=== PATIENT | male | born 1960 | race Caucasian/White ===

== ENCOUNTER 2016-09-08 08:26 | Inpatient (IN) | payer MEDICARE, OTHER ==
[2016-09-04 20:44] LABS: HEMATOCRIT 42.7 % (40.0-51.0); HEMOGLOBIN 14.6 g/dL (13.6-17.8)
[2016-09-04 21:02] LABS: BUN (BLOOD UREA NITROGEN) 10 MG/DL (6-23); CHLORIDE, SERUM 110 MMOL/L (96-112); CREATININE 0.88 MG/DL (0.70-1.30); GFR AFRICAN AMERICAN 114 ML/MIN (>=60); GFR NON AFRICAN AMERICAN 98 ML/MIN (>=60); POTASSIUM, SERUM 4.1 MMOL/L (3.5-5.3); SODIUM, SERUM 142 MMOL/L (135-148)
[2016-09-04 21:03] LABS: CO2 (CARBON DIOXIDE) 19 MMOL/L (24-34); GLUCOSE, SERUM 109 MG/DL (60-99)
--- NOTE | ~2016-09-08 | OP ---
Record Of Operation [facility] [address] [place]. [address] NAME: PATRICIA SANDOVAL : 64 STATUS : ADM IN PAT#: [id number] AGE: 55 ADM/REG DATE : 09/08/16 MR#: [id number] REPORT SERV DATE: 09/09/16 DICTATED BY: MAREN LOERA II DATE: 09/09/16 REPORT STATUS : Draft TRANSCRIBED BY: MODL DATE: 09/09/16 DATE OF PROCEDURE: 09/08/2016 PREOPERATIVE DIAGNOSES: 1. Left upper extremity radiculopathy, recurrent. 2. Persistent stenosis, C5-6, C6-7. 3. Llab-bz-mmrnurkt adjacent segment degeneration, C7-T1. POSTOPERATIVE DIAGNOSES: 1. Left upper extremity radiculopathy, recurrent. 2. Persistent stenosis, C5-6, C6-7. 3. Mque-bn-opdlvdrx adjacent segment degeneration, C7-T1. 4. Nonunion C5-C6. PROCEDURES: 1. Posterior cervical laminectomy, C5-6, C6-7. 2. Posterolateral arthrodesis, C5-6, C7-T1. 3. Posterior segmental instrumentation, C5-6, C6-7, and C7-T1. 4. Use of local autograft, allograft substitute, and bone morphogenic protein. 5. Use of the microscope and stereotactic spinal imaging. SURGEON: Maren Loera M.D. FLUIDS REPLACED: 1 L lactated Ringer's. ESTIMATED BLOOD LOSS: 75 mL. DRAINS: One drain. COMPLICATIONS: None. ANTIBIOTIC: Preoperatively. PREOPERATIVE HISTORY: This is very friendly 55-year-old who has a complicated surgical past, but has done well with surgery. He reports a recurrent pain in the left upper extremity consistent with a C6 and possibly C7 radiculopathy. We discussed the pros and cons of continuing nonoperative care versus surgery. DESCRIPTION OF PROCEDURE: After informed consent was obtained, the patient was brought to the operating room at his request and general anesthesia achieved. He was placed in a prone position following application of the Delgado-Wells tongs. The posterior neck and upper thoracic region were prepped and draped in a sterile fashion. The incision was made in the midline and subperiosteal exposure was completed from C5-T1. The deep retractors were placed. Interestingly, we quickly noticed a very obvious macro motion at C5-6. He had a previous anterior surgery on different occasions, but ultimately spanning C3-C7. C7-T1 of course was mobile as it had not been previously operated on. C6-7 appeared well fused. Record Of Operation [facility] [place] [address] NAME: PATRICIA SANDOVAL : 64 STATUS : ADM IN PAT#: [id number] AGE: 55 ADM/REG DATE : 09/08/16 MR#: [id number] REPORT SERV DATE: 09/09/16 DICTATED BY: MAREN LOERA II DATE: 09/09/16 REPORT STATUS : Draft TRANSCRIBED BY: MODL DATE: 09/09/16 At this point, the lateral mass screws were placed in C5, C6, and C7 using stereotactic guidance. At this point, the intraoperative CT scan has been completed. Following the placement of the T1 pedicle screws we then performed the laminectomy at C5-6 and C6-7. The cord did have some mild stenosis upon it. The main stenosis was in the foramina especially at C5-6. This facet appeared to have continued to hypertrophy and was compressing the C6 nerve root. We also then performed a foraminotomy at C6-7. At this point, I was pleased with the decompression and laminectomy. Next, the rods were then well placed and final tightening performed. A repeat CT scan confirmed acceptable placement of the implants. At this point, the decortication was performed of the lateral masses and the facet joints at C5-6 and C7-T1. The transverse processes of T1 were also decorticated. Local autograft, allograft substitute, and bone morphogenic protein were then placed along the decorticated surfaces. The deep drain was placed, and standard closure performed, and the patient was then extubated and then transferred to PACU in stable condition. PHIL/ANTHONY Maren Loera II, M.D. / [id number] CC: Charly Monzon II, M.D.
--- NOTE | ~2016-09-08 | EEG ---
Electroencephalogram [facility] [address] [place]. [address] NAME: PATRICIA SANDOVAL : 64 STATUS : DIS IN PAT#: [id number] AGE: 55 ADM/REG DATE : 09/08/16 MR#: [id number] REPORT SERV DATE: 09/22/16 DICTATED BY: DATE: REPORT STATUS : Draft TRANSCRIBED BY: MODL DATE: 09/22/16 DATE OF EVALUATION: 09/14/2016 to 09/15/2016. CLINICAL INDICATION: Recurrent loss of consciousness episode. DISCUSSION: This EEG was performed using 10/20 electrode placement system. During the EEG study, symmetric background activity was noted with predominant occipital rhythm of roughly 8 hertz. The patient achieved drowsy, stage 1, 2, was well as 3 sleep with appropriate sleep spindles with K-complexes as well as slowing. During the EEG study, the patient demonstrated no seizure-like activity and no event was captured and no electrographic seizure or seizure discharge was otherwise seen during the EEG study. INTERPRETATION: This EEG study obtained during awake and drowsy as well as stage 1, 2, and 3 sleep, may be considered within normal limits. No focal abnormalities, seizure activity, or seizure discharge were otherwise noted, so the patient demonstrated no clinical seizure and no clinical unresponsive event was captured. [facility]/ANTHONY Juan Antonio Chang MD / [id number] CC: Charly Monzon II, M.D.
--- NOTE | ~2016-09-08 | DS ---
Discharge Summary [facility] [address] [place]. [address] NAME: PATRICIA SANDOVAL : 64 STATUS : DIS IN PAT#: [id number] AGE: 55 ADM/REG DATE : 09/08/16 MR#: [id number] REPORT SERV DATE: 09/29/16 DICTATED BY: MAREN LOERA II DATE: 09/28/16 REPORT STATUS : Draft TRANSCRIBED BY: ANTHONY DATE: 09/28/16 Data Collection from hospitalization DISCHARGE DIAGNOSES: 1. Left upper extremity radiculopathy-recurrent. 2. Persistent stenosis, C5-6, C6-7. 3. Mild to moderate adjacent segment degeneration, C7-T1. 4. Nonunion, C5-C6. 5. Hypertension. 6. History of transient ischemic attack. 7. Hyperlipidemia. 8. 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 9. Enlarged prostate. CONSULTATIONS: Dr. Juan Antonio Chang and Dr. Jordon Giles. PROCEDURES: 1. Posterior cervical laminectomy C5-6, C6-7. Posterolateral arthrodesis, C5-6, C7-T1. Posterior segmental instrumentation C5-6, C6-7 and C7-T1; use of local autograft, allograft substitute, and bone morphogenic protein; use of microscope and stereotactic spinal imaging, 09/08/2016. 2. Loop recorder implantation, 09/16/2016. 3. CTA of the neck/brain-stroke protocol, 09/10/2016. 4. MRI of the brain without contrast, 09/11/2016. 5. CT scan of the brain without contrast and CTA of the neck and brain-stroke protocol, 09/12/2016. 6. MRI of the brain without contrast, 09/13/2016. 7. Electroencephalogram, 09/11/2016. 8. Electroencephalogram, 09/14/2016-09/15/2016. PATHOLOGY: Vertebral bone and soft tissue, cervical spine-no specific microscopic abnormality. DISCHARGE MEDICATIONS: Aspirin 81 mg daily, Tenormin 25 mg daily, Lipitor 40 mg at bedtime, Plavix 75 mg every morning, Neurontin 400 mg three times a day, MS Contin 15 mg every 12 hours, Roxicodone 15 mg every four hours as needed, Zanaflex 4 mg three times a day as needed. CONDITION ON DISCHARGE: Stable. DISPOSITION: The patient was discharged home on a regular diet with activities as instructed. He would follow up with Dr. Jordon Giles 10/29/2016. He would call my office for a followup appointment. He would [facility] a check [facility] 10/07/2016. HOSPITAL COURSE: This is a 55-year-old man who complained of cervical and lumbar spine related symptoms. The symptoms are located in the neck with radiation down the left lower extremity with numbness and lower back sharp, shooting, and stabbing pain with radiation into the left hip/lower extremity. Patient has left upper extremity radiculopathy that is Discharge Summary [facility] [id number] [place]. [address] NAME: PATRICIA SANDOVAL : 64 STATUS : DIS IN PAT#: [id number] AGE: 55 ADM/REG DATE : 09/08/16 MR#: [id number] REPORT SERV DATE: 09/29/16 DICTATED BY: MAREN LOERA II DATE: 09/28/16 REPORT STATUS : Draft TRANSCRIBED BY: ANTHONY DATE: 09/28/16 recurrent. He has persistent stenosis at C5-6 and C6-7. He has mild to moderate adjacent segment degeneration, C7-T1. Treatment options were discussed, and it was elected to proceed with surgical intervention. He was admitted to the hospital at this time for further evaluation and treatment. Upon admission, he was taken to the operating room where he underwent the above-mentioned procedure. He tolerated this well, and there were no complications. On postop day 1, he was alert and cooperative. He had no focal deficits. He had a normal respiratory effort. He was evaluated by Physical Therapy. The following day, an echocardiogram was performed. He remained stable. He did have severe postop incisional pain. Pain medication was increased. He was seen by Dr. Juan Antonio Chang regarding possible acute stroke, been ambulating in the halls, and was doing well postoperatively. At approximately 11:10 a.m., the patient was found to have the acute onset of left-sided weakness involving the left arm as well as the left lower extremity. The patient denied any significant dysarthria. His symptoms remained stable since onset. There was some baseline left upper extremity numbness secondary to radiculopathy that remained unchanged. The patient otherwise denied any similar symptoms in the past. He denied diplopia or language difficulties or dysarthria. CT scan of the brain demonstrated mild hyperattenuation on the left subcortical lateral ventricle area which was unchanged from [address] scan[address] CTA demonstrated no significant stenosis, and no hemorrhage or acute change was otherwise noted. At his baseline, he had been taking Plavix. He was not currently on anticoagulation. He is going to be monitored in the ICU. An MRI of the brain without contrast was requested as well as an echocardiogram with bubble study. Lipitor was started. We were going to check a fasting lipid panel and hemoglobin A1c with morning labs. If the patient elects to proceed with tPA, we would proceed with tPA administration. Otherwise, we would place the patient on a combination of aspirin as well as Plavix if this was okay with Orthopedics. On 09/11/2016, he still complained of numbness on the left side of his head. He understood it was not related to his surgery. His pain was not well controlled after the evening dose of MS Contin which had been held the previous evening. Valium was going to be provided. An MRI of the brain without contrast was performed. Lipitor was continued. Echocardiogram showed no apical thrombus. An electroencephalogram was obtained. This was considered within normal limits. There were no focal abnormalities, seizure activity, or seizure discharge otherwise noted. He was evaluated by Occupational and Physical Therapy. On the , he was resting well. His pain was better controlled. A CT scan of the brain without contrast and CTA of the neck and brain were performed. He was encouraged to mobilize. He had mild decreased nasolabial fold. Aspirin and Lipitor were continued. Through that afternoon, the patient was found to be unresponsive. There was no improvement with Narcan. There was diffuse weakness, but apparently, it was worse in the left upper extremity compared to the right upper extremity. The patient had aphasia. The patient had previously declined tPA on 09/10/2016. CTA of the head and neck was reviewed. There was no clear proximal thrombosis noted. The patient has had a prior admission with left facial numbness and left-sided weakness in the past with a negative MRI of the brain. We were considering long-term EEG monitoring, but there was also concern for possible seizure versus psychogenic event. An MRI of the brain without contrast was requested. If this was negative, we may consider watermaster EEG monitoring. The nursing staff notified Dr. Chang that radiology report was positive for CVA. Virtual radiology report was reviewed. No proximal vessel stenosis was noted. A prior chronic right lacunar CVA had been noted on noncontrast CT scan of the Discharge Summary [address] [place]. [address] NAME: PATRICIA SANDOVAL : 64 STATUS : DIS IN PAT#: [id number] AGE: 55 ADM/REG DATE : 09/08/16 MR#: [id number] REPORT SERV DATE: 09/29/16 DICTATED BY: MAREN LOERA II DATE: 09/28/16 REPORT STATUS : Draft TRANSCRIBED BY: ANTHONY DATE: 09/28/16 brain. He discussed the CT and CTA of the head and neck with Dr. Ireland who agreed with no acute findings and no proximal vessel stenosis. On 09/13/2016, 24-hour EEG monitoring was requested. MRI of the brain without contrast was performed. No acute intracranial abnormality was seen, and there was no evidence for acute ischemic infarction. The following day, the patient had no complaints. He did report some symptom improvement. The patient met all of his physical therapy goals. A 24-hour EEG was begun. On 09/15/2016, he complained of some left facial and left arm numbness. Hemoglobin A1c was found to be 5.2. His electroencephalogram was considered within normal limits. There were no focal abnormalities, seizure activity, or seizure discharges noted. The patient demonstrated no clinical seizure and no clinical unresponsive event. B12 supplementation was going to be provided. The patient was seen by Dr. Jordon Giles regarding recurrent TIA and need for implantation of loop recorder. The patient had undergone an extensive neurologic workup which had revealed chronic ischemic focal changes in the temporal white matter. He remained in a normal sinus rhythm. Echocardiogram was normal with ejection fraction of 55% without evidence of shunt. It was felt that the patient would need to undergo implantation of a loop recorder. The patient denied any recent cardiac problems. He denied any stimulants. He is a nonsmoker. He was already restarted on Plavix and statin agent. He had been ambulating without any support. He is on disability for chronic orthopedic issues. He had no other cardiac issues. Orthostatic blood pressures were checked. Next day, he remained stable. We continued to check orthostatic blood pressures. He was in a normal sinus rhythm. Discharge planning was performed. On 09/17/2016, he continued to do well. INR level was 1.2. He had no chest pain or palpitations. Discharge instructions were given. Due to his improved and stable condition, he was discharged home to be followed by home health care with the above-stated instructions. Information collected by: Koki Guido I submit the above information as my discharge summary. TG/ANTHONY Maren Loera II, M.D. / [id number] CC: Charly Tafoya M.D. Chun C. Huang, MD
--- NOTE | ~2016-09-08 | EEG ---
Electroencephalogram [facility] [address] [place]. [address] NAME: PATRICIA SANDOVAL : 64 STATUS : ADM IN PAT#: [id number] AGE: 55 ADM/REG DATE : 09/08/16 MR#: [id number] REPORT SERV DATE: 09/11/16 DICTATED BY: DATE: REPORT STATUS : Draft TRANSCRIBED BY: MODL DATE: 09/11/16 CLINICAL INDICATION: Loss of consciousness episode. DESCRIPTION: This EEG was performed using 10/20 electrode placement system. During the EEG study, symmetric background activity was noted with predominant occipital rhythm of roughly 7 hertz. Photic stimulation was performed with appropriate driving response. Hyperventilation was not performed secondary to the patient's underlying medical condition. During the EEG study, the patient was noted to achieve drowsy as well as stage I and II sleep with appropriate sleep spindles and K-complexes. No focal abnormalities, seizure activity, or seizure discharge was otherwise noted during the EEG study. INTERPRETATION: This EEG study obtained during awake, drowsy as well as stage I and II sleep may be considered within normal limits. No focal abnormalities, seizure activity, or seizure discharge was otherwise noted. Clinical correlation is recommended. [facility]/ANTHONY Juan Antonio Chang MD / [id number] CC: Charly Monzon II, M.D.
--- NOTE | ~2016-09-08 | CN ---
Consultation Report [facility] [address] [place]. [address] NAME: PATRICIA SANDOVAL : 64 STATUS : ADM IN PAT#: [id number] AGE: 55 ADM/REG DATE : 09/08/16 MR#: [id number] REPORT SERV DATE: 09/15/16 DICTATED BY: BRIGHT SHELBY DATE: 09/15/16 REPORT STATUS : Draft TRANSCRIBED BY: MODL DATE: 09/15/16 CARDIOLOGY CONSULT DATE OF CONSULTATION: REFERRING PHYSICIAN: Natividad Seay, nurse practitioner, neurology Service REFERRING REASON: Recurrent TIA and need for implantation of loop recorder. HISTORY OF PRESENT ILLNESS: This is a pleasant 55-year-old white gentleman with reported history of recurrent TIA, who has been admitted after he underwent extensive cervical spine laminectomy by Dr. Young on 09/08/2016 for left-sided numbness and CVA type symptoms. Of note, before the surgery he has cervical spine radiculopathy with numbness in the index finger, some in the left upper extremity, but after the surgery, he developed left facial numbness and jaw discomfort. He underwent extensive Neurology workup, which revealed chronic ischemic focal changes in the temporal white matter. He remained normal sinus rhythm. Echocardiogram was normal with ejection fraction of 55% without any evidence of shunt. We have been asked for implantation of the loop recorder. The patient denied any recent cardiac problems. He is nonsmoker. Denies any stimulants. He was already started on Plavix and statin. He has been ambulating without any support. He is on disability for chronic orthopedic issues. No other cardiac issues. The rest of review of systems negative. PAST MEDICAL HISTORY: 1. Chronic orthopedic issues with status post lumbar and cervical spine surgeries in the past. Most recent C5-C7 cervical laminectomy by Dr. Young. 2. History of pulmonary embolism and DVT in 2005 with subsequent several months anticoagulation without any recent anticoagulation. 3. Per patient recurrent TIA, most recent one in half years ago. ALLERGIES: PENICILLIN. SOCIAL HISTORY: The patient is . He previously worked as a sanitation truck driver. Currently, he is on disability for orthopedic issues. He is walking without any support. He denies smoking, drinking alcohol, or using street drugs. FAMILY HISTORY: Negative for sudden cardiac or premature coronary artery disease in the family. CURRENT MEDICATION: Aspirin 81 mg once a day, Lipitor 80 mg once a day, atenolol 25 mg once a day, Neurontin 400 mg three times a day, MS Contin 15 mg twice a day, and Tylenol p.r.n. PHYSICAL EXAMINATION: Consultation Report [facility] [address] [place]. [address] NAME: PATRICIA SANDOVAL : 64 STATUS : ADM IN PAT#: [id number] AGE: 55 ADM/REG DATE : 09/08/16 MR#: [id number] REPORT SERV DATE: 09/15/16 DICTATED BY: BRIGHT SHELBY DATE: 09/15/16 REPORT STATUS : Draft TRANSCRIBED BY: ANTHONY DATE: 09/15/16 GENERAL: No acute distress. VITAL SIGNS: Blood pressure 141/90, heart rate 85 regular. LUNGS: Decreased breath sounds, but no crackles. HEENT - Pupils reactive to light and accommodation. Moist mucosa membrane. NECK: No JVD. Normal carotid upstroke. No carotid bruits. COR: Normal S1, S2. No S3 or S4. No significant rub or murmurs. ABD: Soft, nontender, nondistended. EXT: No edema. Pedal pulses strong and equal bilaterally. SKIN: Warm with normal turgor. MS - No kyphosis. NEURO/PSY - Alert and oriented. Nonfocal. There is some mild left upper extremity hemiparesis noted. DATA: MRA of the brain revealed small vessel ischemic changes in the frontal white matter. CT was negative. On monitor, he remains in normal sinus rhythm. Echocardiogram interpreted by my colleague, Dr. Pastrana on 08/11/2016 revealed preserved systolic function with EF 55%, normal in chamber size without any evidence of PFO or ASD. This is consistent with previous echocardiogram from [facility] from 12/2015, which was also normal. On monitor, he remained normal sinus rhythm. ASSESSMENT AND PLAN: 1. Reported recurrent transient ischemic attack symptoms with evidence of documented arrhythmia. 2. Status post recent cervical spine surgery I will ask one of my electrophysiology colleagues for implantation of the internal loop recorder per Dr. Chang request. He will follow up with his primary care physician. He is already on aspirin, Plavix, and statin. No other cardiac issues present. Thank you very much for the consult. OJL/MODL Bright Shelby M.D. / [id number] CC: Charly Monzon II, M.D.
--- NOTE | ~2016-09-08 | CN ---
Consultation Report [facility] [address] [place]. [address] NAME: PATRICIA SANDOVAL : 64 STATUS : ADM IN PAT#: [id number] AGE: 55 ADM/REG DATE : 09/08/16 MR#: [id number] REPORT SERV DATE: 09/10/16 DICTATED BY: DATE: REPORT STATUS : Draft TRANSCRIBED BY: MODL DATE: 09/10/16 NEUROLOGY CONSULTATION DATE OF CONSULTATION: 09/10/2016 REASON FOR CONSULT: Possible acute stroke. HISTORY OF PRESENT ILLNESS: This is a 55-year-old male presented to [facility] on 09/08/2016. The patient is status post cervical spine surgery and fusion on 09/09/2016, was doing well, walking in the hallway, when acutely at 11:10 on the morning of hospital evaluation, the patient was noted to have acute onset of left-sided weakness involving left arm as well as left lower extremity, with the patient denies any significant dysarthria. Symptoms remain stable since onset, with the patient reports baseline left upper extremity numbness secondary to radiculopathy that remains unchanged. The patient otherwise denies similar symptoms in the past. Denies diplopia and again denies any language difficulties or dysarthria. PAST MEDICAL HISTORY: Significant for mild blood pressure issues as well as history of DVT in 2005. The patient is currently not on any anticoagulation and is not taking any aspirin. The patient does have multiple C-spine as well as L-spine surgeries, with the patient recently has C-spine fusion performed by Dr. Loera. FAMILY HISTORY: Significant for brain as well as lung cancer. SOCIAL HISTORY: The patient otherwise denies any tobacco, alcohol, or recreational drug usage. ALLERGIES: THE PATIENT HAS REPORTED ALLERGY TO PENICILLIN, FENTANYL, WELL LATEX. HOME MEDICATIONS: Consist of atenolol and atorvastatin. The patient apparently was taking Plavix a week ago, but is not currently on it, secondary to recent surgery. The patient is taking gabapentin as well as Zanaflex at the time of evaluation. REVIEW OF SYSTEMS: Negative except for those mentioned in the HPI. PHYSICAL EXAMINATION: VITAL SIGNS: At the time of evaluation, the patient was noted to have vital signs with T- max of 98.8, heart rate of 73 to 95, respirations of 11 to 24, and blood pressure of 115-137 over 59-83. GENERAL: The patient is well developed, well nourished, in no acute distress. CARDIOVASCULAR: Regular rate and rhythm. No carotid bruits were otherwise auscultated. PULMONARY: Clear to auscultation bilaterally. NEUROLOGICAL: Generally, the patient is alert and oriented to person, place, year, as well Consultation Report [facility] [address] [place]. [address] NAME: PATRICIA SANDOVAL : 64 STATUS : ADM IN PAT#: [id number] AGE: 55 ADM/REG DATE : 09/08/16 MR#: [id number] REPORT SERV DATE: 09/10/16 DICTATED BY: DATE: REPORT STATUS : Draft TRANSCRIBED BY: MODL DATE: 09/10/16 as month. No clear dysarthria or aphasia was otherwise noted at the time of evaluation. Cranial nerves 2 through 12: Pupils equal, round, and reactive to light. Extraocular eye movement was noted to be intact with mild decrease in nasolabial fold on the left. The patient otherwise reports symmetrical facial expression except for mild sensory loss around posterolateral head on the left. The patient was noted to have intact hearing at the time of evaluation. No aphasia was otherwise appreciated. The patient does demonstrate 5/5 right upper extremity strength and 4/5 left upper extremity strength, with the patient noted to have 3/5 bilateral lower extremity strength at the time of evaluation; left mildly weaker than the right. Otherwise, was noted to have decreased sensation in the left upper extremity which the patient reports to be stable compared to prior. The patient also reports decreased sensation on the left upper extremity. No ataxia was noted on finger-to- nose examination on the right upper extremity. Gait was not evaluated secondary to weakness and recent surgery. LABORATORY STUDIES: At the time of evaluation demonstrated glucose of 134. On 09/04/2016, the patient was noted to have a creatinine of 0.88. At the time of evaluation, CT scan of his brain demonstrated mild hyperattenuation on the left subcortical lateral ventricle area which was unchanged from [address] scan. Otherwise, CT angiogram demonstrated no significant stenosis and no hemorrhage or acute change was otherwise noted. IMPRESSION: Left hemiparesis. Time of onset is 11:10. NIH stroke scale is 7. Left-sided weakness at the time of evaluation, but no dysarthria. The patient is currently not on any anticoagulation, at baseline was taking Plavix. The patient does report baseline left upper extremity numbness that has not recently worsen. The patient does have recent C-spine fusion surgery performed by Dr. Loera, who is okay with tPA. The patient is currently considering tPA after discussion with the patient regarding risks as well as benefit. RECOMMENDATION: 1. ICU monitoring. 2. MRI of the brain without contrast. 3. Echocardiogram with bubble study. 4. Lipitor 80 mg p.o. at bedtime. 5. Fasting lipid panel and hemoglobin A1c with morning labs. 6. PT/OT to evaluate and treat. 7. If the patient is to decide tPA, we will proceed with tPA administration. Otherwise, we will place the patient on combination of aspirin as well as Plavix if okay with Orthopedic Surgery. [facility] Juan Antonio Chang MD Consultation Report [address] [address] NAME: PATRICIA SANDOVAL : 64 STATUS : ADM IN [facility]#: [id number] AGE: 55 ADM/REG DATE : 09/08/16 MR#: [id number] REPORT SERV DATE: 09/10/16 DICTATED BY: DATE: REPORT STATUS : Draft TRANSCRIBED BY: MODL DATE: 09/10/16 / [id number] CC: Charly Monzon II, M.D.
[~2016-09-08 08:26] MED LIST: ACET500CAP PO; AMITIZA24 PO; ASA5GR PO; ATEN25 PO; B121000P IM; DIL4TAB PO; LIPITOR40 PO; MEDROLPAK4 PO; MSCONTIN; MSCONTIN PO; NEUR300 PO; NEUR400 PO; NEUR600 PO; NORCO1 TA1 PO; PERCOCET1 TA2 PO; PLAVIX PO; PROTONIX PO; V2 PO; V5 PO; ZANAFLEX 4 MG TA4 MG PO; [UNRECOGNIZED DRUG - OTHER]
[2016-09-11 05:57] LABS: CHOL/HDL RATIO(NOT ORDER) 2.4 (0-5)
[2016-09-16 05:30] LABS: BASOPHILS 0.2 %; BASOPHILS ABSOLUTE 0.02 10/3/uL (0.0-0.16); EOSINOPHILS 3.4 %; EOSINOPHILS ABSOLUTE 0.29 10/3/uL (0.0-0.53); HEMOGLOBIN 12.6 g/dL (13.6-17.8); IMMATURE GRANULOCYTES 0.4 %; IMMATURE GRANULOCYTES ABSOLUTE 0.03 10/3/uL (0.0-0.11); LYMPHOCYTES 25.6 %; LYMPHOCYTES ABSOLUTE 2.18 10/3/uL (0.67-4.30); MEAN CORPUSCULAR VOLUME 83.2 fL (80-100); MEAN PLATELET VOLUME 10.7 fL (9.2-13.0); MONOCYTES 8.5 %; MONOCYTES ABSOLUTE 0.72 10/3/uL (0.21-1.20); NEUTROPHILS 61.9 %; NEUTROPHILS ABSOLUTE 5.26 10/3/uL (2.02-8.40); PLATELET COUNT 230 10/3/uL (150-400); RBC DISTRIBUTION WIDTH 13.1 % (12.0-16.0); RED CELL COUNT 4.35 10/6/uL (4.7-6.1)
[2016-09-16 05:32] LABS: HEMATOCRIT 36.2 % (40.0-51.0); MANUAL DIFF NO %; MEAN CORPUS HGB CONC 34.8 g/dL (32.0-36.0); WHITE BLOOD CELLS 8.5 10/3/uL (4.5-10.5)
[2016-09-16 05:35] LABS: INTERNATIONAL NORMAL RATI 1.2 UNITS (-); PROTIME (NOT ORD) 15.1 SEC (12.0-14.5)
[2016-09-16 05:37] LABS: BUN (BLOOD UREA NITROGEN) 7 MG/DL (6-23); CHLORIDE, SERUM 103 MMOL/L (96-112); CREATININE 0.77 MG/DL (0.70-1.30); GFR AFRICAN AMERICAN 120 ML/MIN (>=60); GFR NON AFRICAN AMERICAN 104 ML/MIN (>=60); GLUCOSE, SERUM 113 MG/DL (60-99); POTASSIUM, SERUM 4.1 MMOL/L (3.5-5.3); SODIUM, SERUM 136 MMOL/L (135-148)
[2016-09-16 05:40] LABS: CO2 (CARBON DIOXIDE) 25 MMOL/L (24-34)
[2016-09-17] MEDS ORDERED: MSCONT15 PO (17:59)
[2016-09-17] MEDS ORDERED: ASAB PO (18:00)
[2016-09-17] MEDS ORDERED: ROXICODONE15 MG PO (18:02)
== END 2016-09-17 18:52 | disposition home health service (06) | DRG 460 ==
LOC: SDC/OF 08:26 → PACU 16:43 → 3SO 18:51 → CCU 09-10 12:18 → 1SO 09-11 19:18
PROVIDERS: Internal Medicine Cardiovascular Disease; Orthopaedic Surgery; Psychiatry & Neurology Neurology
PROC: 4A11X4G Monitoring of Peripheral Nervous Electrical Activity, Intraoperative, External Approach (ICD-10-PCS; 2016-09-08)
PROC: 0RG60Z1 (ICD-10-PCS; principal; 2016-09-08 10:45)
PROC: 0RG2071 Fusion of 2 or more Cervical Vertebral Joints with Autologous Tissue Substitute, Posterior Approach, Posterior Column, Open Approach (ICD-10-PCS; 2016-09-08 10:45)
PROC: 0JH632Z Insertion of Monitoring Device into Chest Subcutaneous Tissue and Fascia, Percutaneous Approach (ICD-10-PCS; 2016-09-16)
DX: M50.122 Cervical disc disorder at C5-C6 level with radiculopathy (principal); G81.94 Hemiplegia, unspecified affecting left nondominant side; G45.9 Transient cerebral ischemic attack, unspecified; I10 Essential (primary) hypertension; R29.707 NIHSS score 7; M51.34 Other intervertebral disc degeneration, thoracic region; E78.5 Hyperlipidemia, unspecified; E53.8 Deficiency of other specified B group vitamins; N40.0 Benign prostatic hyperplasia without lower urinary tract symptoms; Z79.899 Other long term (current) drug therapy; Z86.718 Personal history of other venous thrombosis and embolism; Z86.73 Personal history of transient ischemic attack (TIA), and cerebral infarction without residual deficits; Z88.0 Allergy status to penicillin; Z88.5 Allergy status to narcotic agent; Z91.040 Latex allergy status
CPT/HCPCS: 33282; 36415; 70450; 70496; 70498; 70551; 80048; 80061; 82962; 83036; 85014; 85018; 85025; 85610; 87641; 88304; 88311; 93005; 93306; 95813; 95819; 97110-GO; 97110-GP; 97116-GP; 97162-GP; 97164-GP; 97166-GO; 97530-GP; 97535-GO; A9270-GY; C1713; C1764; G8987-CL-GO; G8988-CK-GO; J1170; J1580; J1644; J2250; J2370; J2405; J3010; J3370; Q9967